=== PATIENT | male | born 1970 | race Caucasian/White ===

== ENCOUNTER → 2019-02-07 | Outpatient (CLI) | payer OTHER | LOC: CAT 10:50 | DX: Z13.6 Encounter for screening for cardiovascular disorders (principal); E78.00 Pure hypercholesterolemia, unspecified; I25.10 Atherosclerotic heart disease of native coronary artery without angina pectoris ==

== ENCOUNTER → 2019-03-05 | Outpatient (CLI) | payer OTHER | LOC: ULTRA 08:22 | DX: I77.89 Other specified disorders of arteries and arterioles (principal) ==